=== PATIENT | male | born 1985 | race Caucasian/White ===

== ENCOUNTER → 2016-05-29 | Emergency (ER) | payer OTHER ==
[~2016-05-29] MED LIST: NALOXONE HCL 0.4 MG/ML VIAL IVPUSH ONE; NALOXONE HCL 0.4 MG/ML VIAL ONE; SODIUM CHLORIDE 1,000 ML IV STA
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
[2016-05-29 00:57] VITALS: BP 163/75; PULSE 109; TEMP 98.6; BMI 25.7
--- NOTE | 2016-05-29 13:29 | EKG ---
Test Reason : Blood Pressure : / mmHG Vent. Rate : 098 BPM Atrial Rate : 098 BPM P-R Int : 138 ms QRS Dur : 096 ms QT Int : 344 ms P-R-T Axes : 066 054 018 degrees QTc Int : 439 ms NORMAL SINUS RHYTHM NORMAL ECG NO PREVIOUS ECGS AVAILABLE Confirmed by GAVIN GRAJEDA MD ([id number]) on 05/29/2016 1:29:18 PM Referred By: Confirmed By:GAVIN GRAJEDA MD
== END | disposition left against medical advice (07) ==
LOC: JER 00:12
PROC: 3E0337Z Introduction of Electrolytic and Water Balance Substance into Peripheral Vein, Percutaneous Approach (ICD-10-PCS; principal; 2016-05-29)
PROC: 3E033GC Introduction of Other Therapeutic Substance into Peripheral Vein, Percutaneous Approach (ICD-10-PCS; 2016-05-29)
DX: R40.4 Transient alteration of awareness (principal)
CPT/HCPCS: 71010-TC; 93005; 93010; 99284-25